=== PATIENT | male | born 1985 | race Caucasian/White ===

== ENCOUNTER 2020-07-22 11:09 | Outpatient (CLI) | payer BC, SELFPAY ==
[2020-07-22 12:14] LABS: Alanine Aminotransferase 23 U/L (16-63); Albumin Level 4.3 g/dL (3.4-5.0); Alkaline Phosphatase 68 U/L (46-116); Anion Gap 8 mmol/L (8-16); Aspartate Amino Transferase 25 U/L (15-37); Bilirubin,Total 0.7 mg/dL (0.00-1.00); Blood Urea Nitrogen 15 mg/dL (7-18); Calcium 8.9 mg/dL (8.5-10.1); Carbon Dioxide 29 mmol/L (21-32); Chloride 103 mmol/L (98-108); Cholesterol 172 mg/dL (0-200); Estimated Glomerular Filt Rate > 60; Glucose 104 mg/dL (70-99); HDL Direct 47 mg/dL (40-60); LDL Cholesterol Calculated 111 mg/dL (<130); Osmolality Calculated 290 mOsm/kg (285-295); Potassium 4.4 mmol/L (3.5-5.1); Sodium 140 mmol/L (136-145); Total Protein 6.8 g/dL (6.4-8.2); Triglycerides 68 mg/dL (0-150)
[2020-07-22 12:23] LABS: HIV 1 P24 AG Negative (Negative); HIV 1/2 AB Negative (Negative)
[2020-07-24 12:53] LABS: RPR Screen Non-Reactive (Non-Reactive)
[2020-07-25 18:40] LABS: Hepatitis A Antibody IgM Nonreactive; Hepatitis B Core Antibody Nonreactive (Nonreactive); Hepatitis B Surface Antigen Nonreactive (Nonreactive); Hepatitis C Signal to Cutoff 0.01 ratio (<1.00); Hepatitis C Virus Antibody Nonreactive (Nonreactive)
== END 2020-07-22 11:10 | disposition home or self-care (01) ==
LOC: CHSLAB 11:16
PROVIDERS: PCP Family Medicine; Visit Provider Family Medicine
DX: Z11.3 Encounter for screening for infections with a predominantly sexual mode of transmission (principal); Z13.220 Encounter for screening for lipoid disorders
CPT/HCPCS: 36415; 80053; 80061; 80074; 86592; 86695; 86696; 86703

== ENCOUNTER 2022-09-14 14:53 | Emergency (ER) | payer BC, SELFPAY ==
--- NOTE | ~2022-09-14 | CT_ITS ---
EXAMINATION: CT brain wo con INDICATION: Head injury COMPARISON: None TECHNIQUE: Standard unenhanced head CT. The dose-length product (DLP) was 605.33 mGy-cm. The mA was a djusted according to patient size. Iterative reconstruction technique was employed. FINDINGS: There is no intracranial hemorrhage, acute infarction, or abnormal mass lesion. The ventric les are normal. There is no abnormal mass effect or midline shift. The lechuga-white matter differentiat ion is normal. The basal cisterns are patent. The orbits are normal. The paranasal sinuses, mastoids and calvarium are normal. IMPRESSION: 1. No acute intracranial abnormality. Reviewed, dictated and finalized at location F.
--- NOTE | ~2022-09-14 | CT_ITS ---
EXAMINATION: CT facial bones wo con DATE: 09/14/2022 18:16 INDICATION: Facial pain and deformity, initial encounter TECHNIQUE: Computed tomography (CT) of the facial bones and maxillofacial region was performed withou t intravenous contrast. The dose-length product (DLP) was 288.72 mGy-cm. Automated exposure control a nd iterative reconstruction technique were employed. COMPARISON: None. FINDINGS: There are acute bilateral nasal bone fractures, comminuted on the left. The nasal septum is fractured. The globes and orbits are normal. No additional facial fracture is identified. The visual ized portions of the cervical spine are unremarkable. IMPRESSION: 1. Acute bilateral nasal bone fractures, comminuted on the left. 2. Fracture nasal septum. Reviewed, dictated and finalized at location F.
[2022-09-14 15:43] VITALS: BP 139/87; PULSE 79; RESP 18; TEMP 36.4; O2SAT 97
[2022-09-14 17:34] VITALS: RESP 20; O2SAT 100
--- NOTE | 2022-09-14 17:34 | ED.GENADULT ---
HPI - General Adult General Chief complaint: Unspecified Stated complaint: nose injury Time Seen by Provider: 09/14/22 17:22 Source: patient Mode of arrival: ambulatory Limitations: no limitations History of Present Illness HPI narrative: Patient is a 37-year-old male who presents to the ED with report of nasal injury. Patient reports he was wrestling today and was hit directly in his nose and face with somebody's shoulder. He states he was very stunned by the head, but did not lose consciousness. He began having bleeding from bilateral nostrils. The bleeding has since resolved. He has pain to his nose. He is able to breathe out of his nose. Denies difficulty breathing or shortness of breath. He had a mouthguard and at that time and denies any malocclusion, dental trauma, trismus, jaw pain. Denies any vision changes, dizziness, lightheadedness, nausea, vomiting. Related Data Allergies Allergy/AdvReac Type Severity Reaction Status Date / Time No Known Allergies Allergy Verified 09/14/22 17:23 Review of Systems Review of Systems: CONSTITUTIONAL: Denies fever, chills, or sweats. EYES: Denies visual changes. ENT: See HPI. CARDIOVASCULAR: Denies chest pain. RESPIRATORY: Denies dyspnea. GASTROINTESTINAL: Denies abdominal pain, nausea, vomiting. MUSCULOSKELETAL: Denies back pain, joint pain, or myalgia. NEUROLOGIC: See HPI. All systems reviewed & are unremarkable except as noted in HPI and below PMFSH Social History Social History Smoking status: Never smoker Exam Narrative: GENERAL: Well appearing, well-nourished, non-toxic, in no acute distress. HEAD: Normocephalic, atraumatic. EYES: PERRLA/EOMI, conjunctiva clear. No periorbital swelling or ecchymosis. ENT: Nasal airway patent. Mild right sided lateral deformity of bridge of nose, mildly tender to palpation throughout bridge. Small amount of crepitus to right upper nasal bridge. No significant swelling or ecchymosis. Dried blood in bilateral nares. No active bleeding. No septal hematoma. No dental trauma. No trismus. No stridor. NECK: Supple. No adenopathy, no masses. No tenderness throughout cervical spine. RESPIRATORY: Airway patent, respirations nonlabored. Clear to auscultation bilaterally, no rales, rhonchi, wheezing. CARDIOVASCULAR: Regular rate and rhythm without murmurs, rubs, or gallops. Peripheral pulses 2+ and equal bilaterally. MUSCULOSKELETAL: Moves all extremities. Strength/ROM intact without gross deformities. SKIN: Warm, dry, normal color. No rashes. NEURO: A&O X3. Speech clear. Cranial nerves II-XII grossly intact. Steady gait. No ataxic movements. PSYCHIATRIC: Appropriate mood and affect. Normal interaction. Course Vital Signs Vital signs: Vital Signs Temperature 97.6 F 09/14/22 15:43 Pulse Rate 79 09/14/22 15:43 Respiratory Rate 18 09/14/22 15:43 Blood Pressure 139/87 09/14/22 15:43 Pulse Oximetry 97 09/14/22 15:43 Oxygen Delivery Room Air 09/14/22 15:43 Temperature 97.6 F 09/14/22 15:43 Pulse Rate 79 09/14/22 15:43 Respiratory Rate 20 09/14/22 17:34 Blood Pressure 139/87 09/14/22 15:43 Pulse Oximetry 100 09/14/22 17:34 Oxygen Delivery Room Air 09/14/22 15:43 Medical Decision Making MDM Narrative Medical decision making narrative: Patient presented to ED status post head injury with trauma to nose, deformity noted. Epistaxis resolved, no septal hematoma on exam. No signs of airway compromise. Nasal passage patent. CT brain negative. CT facial bones showing bilateral nasal bone fractures, comminuted on left, fractured nasal septum. Patient updated on imaging findings. He will be referred to ENT for further evaluation. Pain medication sent to pharmacy. Given return precautions. He agrees with plan. Discharged in stable condition. Medical Records Medical records reviewed: Yes I reviewed the external patient's me
[2022-09-14] MEDS: ACETAMINOPHEN 500 MG TABLET 1000 MG PO (17:50)
[2022-09-14] MEDS: KETOROLAC (*BKC) 60 MG/2 ML VIAL IM (19:13)
[2022-09-14 19:26] VITALS: BP 123/74; PULSE 88; RESP 20; O2SAT 100
== END 2022-09-14 19:28 | disposition home or self-care (01) ==
PROVIDERS: Emergency Provider Physician Assistant; PCP Family Medicine
DX: S02.2XXA Fracture of nasal bones, initial encounter for closed fracture (principal); W51.XXXA Accidental striking against or bumped into by another person, initial encounter; Y93.72 Activity, wrestling
CPT/HCPCS: 70450; 70486; 96372; 99284; A9270; J1885

== ENCOUNTER 2022-09-20 01:46 | Day surgery (SDC) | payer BC, SELFPAY ==
--- NOTE | 2022-09-19 07:44 | P.HP_ITS ---
H&P: HPI History of Present Illness Date/Time: 09/19/22 07:44 Chief Complaint: nasal obstruction nasal congestion septal fracture nasal fracture Narrative: planned procedure Review of Systems Review of Systems: All systems reviewed & are unremarkable except as noted in HPI and below [facility] Social History Social History Smoking status: Never smoker Meds Home Medications and Allergies Home Medications Medication Instructions Recorded Confirmed Type hydrocodone 5 mg-acetaminophen 325 1 tablet PO Q6H PRN pain #20 tabs 09/14/22 Rx mg tablet Allergies Allergy/AdvReac Type Severity Reaction Status Date / Time No Known Allergies Allergy Verified 09/14/22 17:23 Exam Narrative: septal deviation nasal cosmetic deformity septal fracture nasal bone fracture Assessment and Plan Assessment and plan (1) Nasal bone fracture: Code(s): S02.2XXA - Fracture of nasal bones, initial encounter for closed fracture Status: Acute Assessment and Plan: plan OR closed reduction nasal bone closed reduction nasal septal fracture total operative time probably 15-30 minutes. Risks were discussed including failure to resolve symptoms nasal obstruction nasal congestion postoperative bleeding need for time off work need for time off school inherent risks of narcotic use. Damage to vision change in vision total blindness damage to orbit al ocular structures should the [place] involve this area. Patient voiced understanding and agreed. (2) Closed fracture of nasal septum: Code(s): S02.2XXA - Fracture of nasal bones, initial encounter for closed fracture Status: Acute
[2022-09-19 08:56] VITALS: BMI 29.0
--- NOTE | 2022-09-19 09:02 | PC.NURSE ---
Report to the Outpatient Waiting Room, entrance under the green pavilion located off [facility], at time _0715 on date _09/20/22_. Planned Procedure Time: _0915_. Time changes happen often and if your time is changed the preop area will call you the afternoon before. - You and your visitor will be asked to self-screen and do not enter if you have any COVID symptoms. - A mask is optional within the hospital at this time. Patients may have clear liquids (water, carbonated beverages, clear teas, apple juice) until 3 hours prior to surgery with a maximum of 20 ounces. - No food from midnight until time of surgery - Infants may have breast milk until 4 hours before surgery, formula 6 hours prior to surgery. - Children will be allowed to drink immediately following surgery. If applicable, please bring a bottle or sippy cup to assist with drinking. Juice, water, soda, and popsicles are readily available. For infants on formula, please bring formula the day of surgery. Pacifiers are allowed. Take the following medications with a SIP of water the morning of surgery: ____PAIN PILL/ LORAZEPAM IF NEEDED DO NOT STOP ANY OF YOUR OTHER PRESCRIPTION MEDICATIONS PRIOR TO SURGERY ?EXCEPT THE FOLLOWING Medications to discontinue per physician NONE____ Date to take last dose Please no make-up, nail [place], hairspray, perfume, deodorant, or body powder the day of surgery. No jewelry (including any body piercings) or valuables the day of surgery, leave them at home. Please take a shower or bath the night before, or the morning of, surgery with an antibacterial soap. Wear comfortable, loose fitting clothing. Children are encouraged to wear pajamas. - Jewelry must be removed prior to entering the operating room. Rings and piercings that are not removed may be cut off. - The hospital will not accept responsibility for valuables. - Please leave all valuables, including medications, at home the day of surgery. If you are going home after surgery, a licensed putaway driver must drive you home. - NO public transportation without another adult if you receive anesthesia. - We recommend that an adult stay with you for 24 hours following discharge. - We also recommend that you do not drive, make important decision, drink alcoholic beverages, or take any drugs that were not prescribed by your health care provider for at least 24 hours after your discharge time. For Pediatric surgeries, we recommend two adults accompany the child home. Follow any additional instructions given to you from your surgeon. If you or anyone in your household have experienced Covid symptoms in the past week, please notify your surgeon or the nurse liaison at the phone number below for possible testing. Telephone instructions given to __KAUR and asked if any additional questions and then verbalized understanding. Patient advised to call surgeon office or pre surgery nurse liaison [phone] if any additional questions.
[2022-09-20] VITALS (8 sets, daily range): BP systolic 99–154; BP diastolic 51–96; PULSE 49–60; RESP 12–19; TEMP 36.2–36.3; O2SAT 94–100
--- NOTE | 2022-09-20 07:08 | ECG_ITS ---
Measurements Intervals [place] Rate: 52 P: 37 MS: 196 QRS: 10 QRSD: 101 T: -3 QT: 428 QTc: 398 Interpretive Statements SINUS BRADYCARDIA OTHERWISE WITHIN NORMAL LIMITS NO PREVIOUS ECG AVAILABLE FOR COMPARISON Electronically Signed On 09-20-2022 13:29:01 CDT by Jamie Becker M.D.
--- NOTE | 2022-09-20 07:15 | WPDHPUPDATE1 ---
History and Physical Update Update Date/Time: 09/20/22 07:15 History and Physical has been reviewed, including an updated exam of the patient. There are NO changes in the patient's condition. Risks, benefits, and alternatives have been discussed and questions answered. Patient agrees to proceed with procedure.
[2022-09-20] MEDS: LACTATED RINGERS 1,000 ML 30 ML IV CONT ×2 (07:42→10:01)
[2022-09-20] MEDS: ACETAMINOPHEN 500 MG TABLET 1000 MG PO (08:09)
--- NOTE | 2022-09-20 08:13 | P.PNAN_ITS ---
Anes - Initial Pre Proc Eval Procedure: Operation Date: 09/20/22 09:15 Proposed Procedures p Closed Reduction Nasal Fracture - Vicente Cole MD Date/Time: 09/20/22 08:13 Surgeon: Vicente Cole MD Pre Op Diagnosis: nasal fx Patient Data Age: 37 Gender: M Height: 1.85 m Weight: 99.5 kg Last Vital Signs Temp 36.2 C L 09/20/22 07:32 Pulse 59 L 09/20/22 07:32 Resp 16 09/20/22 07:32 BP 145/84 H 09/20/22 07:32 Pulse Ox 97 09/20/22 07:32 O2 Del Method Room Air 09/20/22 07:32 Allergies Allergy/AdvReac Type Severity Reaction Status Date / Time No Known Allergies Allergy Verified 09/20/22 07:50 Home Medications Medication Instructions Recorded Confirmed Type lorazepam 0.5 mg tablet 0.5 mg PO DAILY PRN Anxiety 09/19/22 09/20/22 History losartan 100 mg tablet 100 mg PO DAILY 09/19/22 09/20/22 History Patient hx anesthesia problems: none Family hx anesthesia problems: none Results Review: All pre-operative results and documents have been reviewed as part of the pre- operative evaluation. [facility] Social History Social History (Updated 09/19/22 @ 11:[address] [facility]) Smoking status: Never smoker Alcohol intake: never Other substance usage details: EDIBLABLES RARELY/ TOPICAL- CBD DAILY Living arrangements: with roommate(s) Anes - Eval Final PreProcedure Day of Procedure 09/20/22 08:13 Patient weight: overweight Heart: regular rate and rhythm Lungs: clear to auscultation Airway: Mallampati scale class II Neurological: alert and oriented Last oral intake: >/= 8 hours ASA classification: II Emergent: no Anesthetic plan: proceed Anesthesia type and monitoring: general ETT and standard monitoring Results Review: All pre-operative results and documents have been reviewed as part of the pre- operative evaluation. Informed Consent: The patient's anesthetic plan and its attendant risks and benefits were discussed with the patient/family/POA. Questions were solicited and answers provided to the satisfaction of the patient/family/POA.
[2022-09-20] MEDS: OXYMETAZOLINE HCL 0.05% NAS 15 ML BTL (*BKC) 1 SPRAY NASAL (09:14)
--- NOTE | 2022-09-20 09:59 | P.OP_ITS ---
Procedure Note - Detailed Date of Procedure 09/20/22 Pre-op Diagnosis Fracture Post-op Diagnosis Same Procedure Performed closed reduction nasal fracture Surgeon Vicente Cole MD Anesthesia General Indications see above Findings left concave fracture outfractured good result slight deviation of the tip remained septum was attempted to be fractured but was not lose Description of Procedure patient identified consent verified in the preoperative holding area. Patient brought operating room. Time-out performed. General anesthesia induced endotracheal tube secured. Patient prepped draped position procedure confirmed 2nd time-out performed. Afrin-soaked pledgets placed left for 5 minutes then removed. septum was attempted to be fractured to the left did not move well likely not fractured. [place] elevator utilized to outfracture the left nasal bone is the right was pushed in. Good result tip was still slightly deviated to the right. Gelfoam was then packed deep to the left nasal bone to keep it stented out. Bleeding was minimal about 5 cc. Splint was placed over the nose followed by brown tape. I performed all dictated portions of procedure. Care the patient given Anesthesiology. Patient was taken to PACU. No immediate complications. Estimated Blood Loss 5 Drains No Packing Yes ( Gelfoam) Pathology None sent Complications No immediate complications Condition Stable Disposition PACU [facility] Billing Surgery - Charge Forward: Surgery Billing
[2022-09-20] MEDS: fentaNYL CITRATE INJ (*CRX) 100 MCG/2 ML VIAL 25 MCG IV PUSH ×2 (10:04→10:14)
--- NOTE | 2022-09-20 10:15 | SUR.PHASEI ---
1012: Simple mask removed.
== END 2022-09-20 11:30 | disposition home or self-care (01) ==
PROVIDERS: PCP Family Medicine; Visit Provider Otolaryngology
PROC: 0NSBXZZ Reposition Nasal Bone, External Approach (ICD-10-PCS; CPT 21315; principal; 2022-09-20 09:15)
DX: S02.2XXA Fracture of nasal bones, initial encounter for closed fracture (principal); W51.XXXA Accidental striking against or bumped into by another person, initial encounter; Y93.72 Activity, wrestling
CPT/HCPCS: 21320; 93005; A9270; J0330; J1100; J2250; J2405; J2704; J3010; J7120